=== PATIENT | female | born 1930 | race Caucasian/White ===

== ENCOUNTER → 2017-01-29 | Outpatient (REF) | payer MEDICARE | LOC: M SFHCPLAZ 09:18 | PROVIDERS: ATTEND Physician Assistant | DX: E03.9 Hypothyroidism, unspecified (principal); E55.9 Vitamin D deficiency, unspecified | CPT/HCPCS: 36415; 82306; 84443; G0463 ==

== ENCOUNTER → 2018-05-25 | Outpatient (REF) | payer MEDICARE ==
[2018-05-25 16:16] LABS: VITAMIN B12 LEVEL 908 PG/ML (247-911)
[2018-05-25 16:18] LABS: ANION GAP 8 MEQ/L (8-16); BLOOD UREA NITROGEN 25 MG/DL (7-18); CALCIUM LEVEL 8.5 MG/DL (8.8-10.2); CARBON DIOXIDE LEVEL 26 MEQ/L (21-32); CHLORIDE LEVEL 108 MEQ/L (98-107); CREATININE FOR GFR 1.32 MG/DL (0.55-1.30); GLOMERULAR FILTRATION RATE 40.5 (>32); GLUCOSE, FASTING 89 MG/DL (70-100); POTASSIUM SERUM 4.5 MEQ/L (3.5-5.1); SODIUM LEVEL 142 MEQ/L (136-145)
== END ==
LOC: M SFHCPLAZ 13:18
DX: I11.9 Hypertensive heart disease without heart failure (principal); E03.9 Hypothyroidism, unspecified; E53.8 Deficiency of other specified B group vitamins
CPT/HCPCS: 84443

== ENCOUNTER → 2018-12-30 | Outpatient (REF) | payer MEDICARE ==
[2018-12-30 18:27] LABS: CALCIUM LEVEL 8.6 MG/DL (8.8-10.2); CREATININE FOR GFR 1.35 MG/DL (0.55-1.30); GLOMERULAR FILTRATION RATE 39.4 (>32); POTASSIUM SERUM 4.7 MEQ/L (3.5-5.1)
== END ==
LOC: M SFHCPLAZ 15:16
PROVIDERS: ATTEND Family Medicine
DX: N18.3 Chronic kidney disease, stage 3 (moderate) (principal); I11.9 Hypertensive heart disease without heart failure
CPT/HCPCS: 36415; 80048; G0463

== ENCOUNTER → 2019-06-01 | Outpatient (REF) | payer MEDICARE ==
[2019-06-01 12:17] LABS: CALCIUM LEVEL 9.1 MG/DL (8.8-10.2); CHOLESTEROL RISK RATIO 2.44 (<5); CREATININE FOR GFR 1.29 MG/DL (0.55-1.30); GLOMERULAR FILTRATION RATE 41.5 (>32); POTASSIUM SERUM 4.8 MEQ/L (3.5-5.1); THYROID STIMULATING HORMONE 2.71 uIU/ML (0.358-3.740)
== END ==
LOC: M SFHCPLAZ 10:07
PROVIDERS: ATTEND Family Medicine
DX: E78.2 Mixed hyperlipidemia (principal); I11.0 Hypertensive heart disease with heart failure; N18.3 Chronic kidney disease, stage 3 (moderate); E03.9 Hypothyroidism, unspecified; E53.8 Deficiency of other specified B group vitamins

== ENCOUNTER 2020-09-12 21:11 | Inpatient (IN) | payer MEDICARE ==
[~2020-09-12] VITALS: Ht 162.6 cm; Wt 81.5 kg
[2020-09-12 21:52] LABS: BASO % 0.8 % (0.0-1.0); EOS # 0.3 10^3/uL (0.0-0.5); EOS % 7.8 % (0.0-3.0); LYMPH # 1.2 10^3/uL (1.5-5.0); LYMPH % 32.6 % (24.0-44.0); MEAN CORPUSCULAR HEMOGLOBIN 16.6 pg (27.0-33.0); MEAN CORPUSCULAR HGB CONC 25.8 g/dl (32.0-36.5); MEAN CORPUSCULAR VOLUME 64.2 fl (80.0-96.0); MONO # 0.4 10^3/uL (0.0-0.8); MONO % 11.4 % (0.0-5.0); NEUTROPHILS # 1.7 10^3/uL (1.5-8.5); NEUTROPHILS % 47.4 % (36.0-66.0); PLATELET COUNT, AUTOMATED 213 10^3/uL (150-450); RED BLOOD COUNT 3.74 10^6/uL (4.00-5.40); WHITE BLOOD COUNT 3.6 10^3/uL (4.0-10.0)
[2020-09-12 21:55] LABS: HEMOGLOBIN 6.2 g/dl (12.0-15.5)
[2020-09-12 22:02] LABS: INR 2.62; PROTHROMBIN TIME 28.6 SECONDS (12.5-14.3)
[2020-09-12 22:03] LABS: PARTIAL THROMBOPLASTIN TIME 43.6 SECONDS (24.2-38.5)
[2020-09-12 22:49] LABS: ALBUMIN 3.3 GM/DL (3.2-5.2); BILIRUBIN,TOTAL 0.3 MG/DL (0.2-1.0); CALCIUM LEVEL 8.3 MG/DL (8.8-10.2); CK-MB VALUE MASS 1.3 NG/ML (<3.6); CREATININE FOR GFR 1.22 MG/DL (0.55-1.30); GLOMERULAR FILTRATION RATE 44.2 (>32); MB/CK RELATIVE INDEX 1.69 (< OR =4); POTASSIUM SERUM 4.2 MEQ/L (3.5-5.1); TOTAL PROTEIN 6.1 GM/DL (6.4-8.2); TROPONIN I 0.02 NG/ML (< 0.10)
[2020-09-12] MEDS ORDERED: PRAV20TA2 PO (23:14)
[2020-09-12] MEDS ORDERED: LISI40TA PO (23:14)
[2020-09-12] MEDS ORDERED: LEVO75TA4 PO (23:14)
[2020-09-12] MEDS ORDERED: AMLO2.5T3 PO (23:14)
[2020-09-12] MEDS ORDERED: XARE20TA PO (23:14)
[2020-09-12 23:27] LABS: HEMATOCRIT 24.1 % (36.0-47.0); MEAN CORPUSCULAR HEMOGLOBIN 17.6 pg (27.0-33.0); MEAN CORPUSCULAR HGB CONC 27.4 g/dl (32.0-36.5); MEAN CORPUSCULAR VOLUME 64.1 fl (80.0-96.0); PLATELET COUNT, AUTOMATED 215 10^3/uL (150-450); RED BLOOD COUNT 3.76 10^6/uL (4.00-5.40); WHITE BLOOD COUNT 4.3 10^3/uL (4.0-10.0)
[2020-09-12 23:30] LABS: HEMOGLOBIN 6.6 g/dl (12.0-15.5)
[2020-09-13] VITALS (12 sets, daily range): BP systolic 119–164; BP diastolic 61–81
[2020-09-13] MEDS ORDERED: MAALOX 30 ML SUSP *UDC PO PRN (02:30)
[2020-09-13] MEDS ORDERED: MOM 30ML SUSPENSION UDC PO PRN (02:30)
[2020-09-13] MEDS ORDERED: ACETAMINOPHEN TAB 650MG DOSE (2X325MG) PO PRN (02:30)
--- NOTE | 2020-09-13 05:58 | HPEPDOC ---
[facility] Medical History & Physical Date of Admission Sep 13, 2020 Date of Service: Sep 13, 2020 Primary Care Physician: LEA VARELA MD Attending Physician: MARIA TERESA SEQUEIRA MD History and Physical TIME OF SERVICE: 304 AM CHIEF COMPLAINT: Bleeding HISTORY OF PRESENT ILLNESS: This history is limited by the patient's impaired memory. She denied having any medical problems but admitted to taking various medications but could not tell me why she took them. This 89-year-old female came to the hospital via EMS because of complaints, but she couldn't stop bleeding from her left lower leg. Per Mika Suárez by the time the patient arrived in the ER, she only had a pinpoint opening at the outer aspect of the left leg and was no longer bleeding, but her blood work revealed a hemoglobin of 6.2. He felt that this may be due to bleeding varicose veins. The patient that the bleeding may have started around 3 or 4 PM, but was unable to quantify how much she bled. She denied having any blood in her stools or dark sticky stools, denied vomiting, and denied being told that she looks pale. She also denied having chest pain or shortness of breath. REVIEW OF SYSTEMS: 12 point review of systems negative except as listed in HPI PAST MEDICAL/ SURGICAL HISTORY: Per chart review Paroxysmal atrial fibrillation Chronic hypertension Dyslipidemia Hypothyroidism Chronic constipation Vitamin B12 deficiency CKD 3 HFpEF (Grade1) Class 1 obesity Wrist surgery SOCIAL HISTORY: She doesn't smoke She lives in a senior citizens home FAMILY HISTORY: Per chart review Brain and lung cancer, CAD, HTN ALLERGIES: Please see below. HOME MEDICATIONS: Please see below. PHYSICAL EXAMINATION: Vital Signs Date Time Temp Pulse Resp B/P (MAP) Pulse Ox O2 Delivery O2 Flow Rate FiO2 09/12/20 21:24 97.0 92 16 139/84 (102) 99 Room Air GEN: well-nourished / well developed/ NAD INTEGUMENT: not flushed/ not jaundice / has generalize pallor / aspect of the left lower leg is slightly, but there is no blood or abrasion or visible cut HEENT: lips acyanotic /mucus membranes moist and pink CVS: RRR/NMRG/ radial pulses intact / no lower extremity edema LUNGS: able to speak full sentences without stopping to take a breath / no coughing / lungs are clear to auscultation bilaterally on room air ABDOMEN: Contour (flat) / soft & not tender with palpation MSK/EXTREMITIES: NCAT / range of motion intact in all 4 extremities NEURO: CN 2-12 are grossly intact / speech is not dysarthric PSYCH: alert and oriented to person place and time/ able to understand and follow all commands LABORATORY DATA: 09/13/20 06:12 09/12/20 21:23: Immature Granulocyte % (Auto) 0.0, Neutrophils (%) (Auto) 47.4, Lymphocytes (%) (Auto) 32.6, Monocytes (%) (Auto) 11.4H, Eosinophils (%) (Auto) 7.8H, Basophils (%) (Auto) 0.8, Neutrophils # (Auto) 1.7, Lymphocytes # (Auto) 1.2L, Monocytes # (Auto) 0.4, Eosinophils # (Auto) 0.3, Basophils # (Auto) 0.0, Nucleated Red Blood Cells % (auto) 0.0, Prothrombin Time 28.6H, Prothromb Time International Ratio 2.62, Activated Partial Thromboplast Time 43.6H 09/12/20 22:13: Anion Gap 7L, Glomerular Filtration Rate 44.2, Calcium Level 8.3L, Total Bilirubin 0.3, Aspartate Amino Transf (AST/SGOT) 18, Alanine Aminotransferase (ALT/SGPT) 13, Alkaline Phosphatase 51, Total Creatine Kinase 77, Creatine Kinase MB 1.3, Creatine Kinase MB Relative Index 1.69, Troponin I 0.02, Total Protein 6.1L, Albumin 3.3, Albumin/Globulin Ratio 1.2 09/12/20 23:21: Nucleated Red Blood Cells % (auto) 0.0 09/13/20 01:34: Coronavirus (COVID-19)(PCR) NEGATIVE ASSESSMENT: is an 89-year-old with a history of HTN, A. fib, DLP, hypothyroidism, B12 deficiency, HFpEF, CKD 3, class I obesity who presented w c/o bleeding from her lower extremity and was found to have hemoglobin of 6.2; she will be admitted for management and evaluation of acute blood loss anemia. PLAN: 1. Acute Anemia Presuming this is blood loss anemia. Per Mika Suárez source is varicose veins, b ut suspect that she may also have another source of blood loss. Plan: admit to medical floor/ c/w 2 units of PRBCs / f/u repeat serial H/H, reticulocyte #, iron panel w ferritin, , B12, RBC folate, thiamine, stool occult / stool occult 2. Paroxysmal atrial fibrillation Plan: will likely hold xarelto once her meds have been reconciled (per d/w gear technician Chris they will call the patient's daughter in the AM to confirm her meds) 3. Chronic hypertension / Chronic HFpEF (Grade1) Plan: will likely resume amlodipine and lisinopril once her meds are reconciled 4. Dyslipidemia Plan: will likely resume pravastatin once her medications have been reconciled 5. Hypothyroidism Plan: will likely resume lisinopril once her medications have been reconciled 6. CKD 3 stable 7. Class 1 obesity BMI of 32.2, complicates care DVT PROPHYLAXIS: TEDs & sequentials DISPOSITION: home after more than 2 midnight's stay Home Medications Scheduled Amlodipine Besylate (Amlodipine Besylate) 2.5 Mg Tablet, 2.5 MG PO DAILY Levothyroxine Sodium (Levothyroxine Sodium) 75 Mcg Tablet, 75 MCG PO DAILY Lisinopril (Lisinopril) 40 Mg Tablet, 40 MG PO QHS Pravastatin Sodium (Pravastatin Sodium) 20 Mg Tablet, 20 MG PO QHS Rivaroxaban (Xarelto) 20 Mg Tablet, 20 MG PO QHS Allergies Coded Allergies: No Known Allergies (Unverified , 09/13/20) A-FIB/CHADSVASC A-FIB History Current/History of A-Fib/PAF?: No Current PO Anticoag Therapy: No MARIA TERESA SEQUEIRA MD Sep 13, 2020 05:58
[2020-09-13 06:24] LABS: PERCENT SATURATION 4.1 % (13.2-45.0)
[2020-09-13 06:35] LABS: HEMATOCRIT 29.3 % (36.0-47.0); MEAN CORPUSCULAR HEMOGLOBIN 18.2 pg (27.0-33.0); MEAN CORPUSCULAR HGB CONC 27.3 g/dl (32.0-36.5); MEAN CORPUSCULAR VOLUME 66.6 fl (80.0-96.0); PLATELET COUNT, AUTOMATED 238 10^3/uL (150-450); WHITE BLOOD COUNT 5.6 10^3/uL (4.0-10.0)
[2020-09-13 06:50] LABS: CALCIUM LEVEL 8.4 MG/DL (8.8-10.2); CREATININE FOR GFR 1.12 MG/DL (0.55-1.30); GLOMERULAR FILTRATION RATE 48.8 (>32); POTASSIUM SERUM 3.9 MEQ/L (3.5-5.1)
[2020-09-13] MEDS: LEVOTHYROXINE 75MCG TABLET (0.075MG) PO SCH (08:45)
[2020-09-13 09:41] LABS: FOLATE 18.9 NG/ML (>5.4)
--- NOTE | 2020-09-13 19:27 | ECGEPIP ---
[facility] Test Date: 2020-09-12 Pat Name: MEDHAT ERNST Department: Room: [place] [address] Gender: Female Diet Kitchen Cook: lesa : 1930 Requested By: SARAH RICARDO Order Number: [id number] Reading MD: Julien Wong Measurements Intervals Nash Rate: 88 P: 72 HI: 188 QRS: -11 QRSD: 87 T: -7 QT: 367 QTc: 445 Interpretive Statements SINUS RHYTHM WITH OCCASIONAL VENTRICULAR PREMATURE COMPLEXES NONSPECIFIC ST & T-WAVE ABNORMALITY NO PRIOR Electronically Signed on 09-13-2020 19:27:50 EST by Julien Wong
--- NOTE | 2020-09-13 19:50 | IPNPDOC ---
Text Note Date of Service The patient was seen on 09/13/20. NOTE Severely iron deficient. Would like to give her IV iron but need to clarify GOC with the daughter as old SIAIAS mentioned a SPANISH LINGUIST status and no antibiotics etc. For now Hgb appropriately responded to 8s. Will discuss this matter with the daughter tomorrow morning so that I offer care that is consistent with her wishes. VS,Hugoe, I+O VS, Hugoe, I+O Laboratory Tests 09/12/20 21:23 09/12/20 22:13 09/12/20 23:21 09/13/20 06:12 Vital Signs Date Time Temp Pulse Resp B/P (MAP) Pulse Ox O2 Delivery O2 Flow Rate FiO2 09/13/20 18:00 98.0 79 18 126/62 (83) 98 Room Air I&O- Last 24 Hours up to 6 AM 09/13/20 06:00 Intake Total 800 ml Balance 800 ml RHONA CANTRELL MD Sep 13, 2020 19:50
[2020-09-13] MEDS: lisinopriL 40 MG TAB PO SCH (20:25)
[2020-09-13] MEDS: PRAVASTATIN 20 MG TAB PO SCH (20:25)
[2020-09-14] VITALS (7 sets, daily range): BP systolic 130–142; BP diastolic 62–93
[2020-09-14] MEDS: LEVOTHYROXINE 75MCG TABLET (0.075MG) PO SCH (05:33)
[2020-09-14 06:45] LABS: HEMATOCRIT 33.3 % (36.0-47.0); HEMOGLOBIN 9.1 g/dl (12.0-15.5); MEAN CORPUSCULAR HEMOGLOBIN 18.5 pg (27.0-33.0); MEAN CORPUSCULAR HGB CONC 27.3 g/dl (32.0-36.5); MEAN CORPUSCULAR VOLUME 67.5 fl (80.0-96.0); PLATELET COUNT, AUTOMATED 268 10^3/uL (150-450); RED BLOOD COUNT 4.93 10^6/uL (4.00-5.40); WHITE BLOOD COUNT 3.8 10^3/uL (4.0-10.0)
[2020-09-14 06:53] LABS: CALCIUM LEVEL 8.8 MG/DL (8.8-10.2); CREATININE FOR GFR 1.14 MG/DL (0.55-1.30); GLOMERULAR FILTRATION RATE 47.8 (>32); POTASSIUM SERUM 4.1 MEQ/L (3.5-5.1)
[2020-09-14 06:54] LABS: INR 1.18; PROTHROMBIN TIME 15.3 SECONDS (12.5-14.3)
[2020-09-14] MEDS ORDERED: IRON SUCROSE 100MG 5ML VIAL (J1756 PER 1MG) IV SCH (09:15)
--- NOTE | 2020-09-14 11:48 | IPNPDOC ---
Text Note Date of Service The patient was seen on 09/14/20. NOTE SUBJECTIVE: -No acute complaints -Updated daughter, agrees with giving IV iron to boost iron stores and improve symptomatic anemia -Plan will be for likely dc home tomorrow with family PHYSICAL EXAMINATION: VITAL SIGNS: Please see below. GEN: well-nourished / well developed/ NAD INTEGUMENT: not flushed/ not jaundice / has generalize palor / aspect of the left lower leg is slightly, but there is no blood or abrasion or visible cut HEENT: lips acyanotic /mucus membranes moist and pink CVS: RRR/NMRG/ radial pulses intact / no lower extremity edema LUNGS: able to speak full sentences without stopping to take a breath / no coughing / lungs are clear to auscultation bilaterally on room air ABDOMEN: Contour (flat) / soft & not tender with palpation MSK/EXTREMITIES: NCAT / range of motion intact in all 4 extremities NEURO: CN 2-12 are grossly intact / speech is not dysarthric PSYCH: alert and oriented to person place and time/ able to understand and follow all commands LABORATORY DATA: Hgb 9.1 ferritin 11 iron 15 TIBC 369 WBC 3.8 platelets 268 ASSESSMENT: is an 89-year-old with a history of HTN, A. fib, DLP, hypothyroidism, B12 deficiency, HFpEF, CKD 3, class I obesity who presented w c/o bleeding from her lower extremity and was found to have hemoglobin of 6.2 s/p pRBCs and found to have profound iron deficiency. PLAN: 1. 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 2. Paroxysmal atrial fibrillation -hold xarelto, until she sees PCP to discuss risk vs. benefit for shared decision making especially given her GOC. 3. Chronic hypertension / Chronic HFpEF (Grade1) -amlodipine and lisinopril 4. Dyslipidemia -pravastatin 5. Hypothyroidism -continue home meds 6. CKD 3 stable 7. Class 1 obesity BMI of 32.2, complicates care DVT PROPHYLAXIS: TEDs & sequentials DISPOSITION: PT/OT, likely home tomorrow VS,Fishbone, I+O VS, Franci, I+O Laboratory Tests 09/14/20 05:55 Vital Signs Date Time Temp Pulse Resp B/P (MAP) Pulse Ox O2 Delivery O2 Flow Rate FiO2 09/14/20 06:00 98.7 79 20 136/76 (96) 96 Room Air I&O- Last 24 Hours up to 6 AM 09/14/20 06:00 Intake Total 1840 ml Output Total 600 ml Balance 1240 ml RHONA CANTRELL MD Sep 14, 2020 09:01
[2020-09-14] MEDS: IRON SUCROSE 100 MG in NS 100 ML OVER 1 HR IV SCH (12:38)
[2020-09-14] MEDS: PRAVASTATIN 20 MG TAB PO SCH (20:05)
[2020-09-14] MEDS: lisinopriL 40 MG TAB PO SCH (20:05)
[2020-09-15] MEDS: LEVOTHYROXINE 75MCG TABLET (0.075MG) PO SCH (05:39)
[2020-09-15 06:00] VITALS: BP 143/66
[2020-09-15 06:51] LABS: INR 1.12; PROTHROMBIN TIME 14.6 SECONDS (12.5-14.3)
[2020-09-15 09:17] VITALS: BP 163/89
--- NOTE | 2020-09-15 09:29 | DS.PDOC ---
Discharge Summary General Date of Admission Sep 13, 2020 at 02:25 Date of Discharge 09/15/2020 Attending Physician: RHONA CANTRELL MD Discharge Summary PROCEDURES PERFORMED DURING STAY: None ADMITTING DIAGNOSES: 1. Anemia DISCHARGE DIAGNOSES: Severe iron deficiency anemia Bleeding LE varicose vein Dementia Paroxysmal atrial fibrillation on coumadin Chronic hypertension Dyslipidemia Hypothyroidism Chronic constipation Vitamin B12 deficiency chronic CKD 3 chronic HFpEF COMPLICATIONS/CHIEF COMPLAINT: Acute Blood Loss Anemia. HISTORY OF PRESENT ILLNESS: 89-year-old W who came to the hospital via EMS because she couldn't stop bleedin g from her left lower leg when one of her varicose veins started bleeding in the setting of coumadin for pAFib. Per ED provider by the time the patient arrived in the ER, she only had a pinpoint opening at the outer aspect of the left leg and was no longer bleeding, but her blood work revealed a hemoglobin of 6.2. The patient that the bleeding may have started around 3 or 4 PM, but was unable to quantify how much she bled. She denied having any blood in her stools or dark sticky stools, denied vomiting, and denied being told that she looks pale. She also denied having chest pain or shortness of breath. HOSPITAL COURSE: She was admitted for anemia and given 2u pRBCs with appropriate sustained response in her Hgb and Hct. Heme studies revealed profound MANDO with a ferritin of 11 and iron level of 15. I gave her two doses of Venofer 100mg IV to boost her stores and she is now being discharged home on Fe sulfate and will follow up with her PCP. DISCHARGE MEDICATIONS: Please see below. ALLERGIES: Please see below. PHYSICAL EXAMINATION ON DISCHARGE: VITAL SIGNS: Please see below. GEN: well-nourished / well developed/ NAD INTEGUMENT: not flushed/ not jaundice / has generalize palor / aspect of the left lower leg is slightly, but there is no blood or abrasion or visible cut HEENT: lips acyanotic /mucus membranes moist and pink CVS: RRR/NMRG/ radial pulses intact / no lower extremity edema LUNGS: able to speak full sentences without stopping to take a breath / no coughing / lungs are clear to auscultation bilaterally on room air ABDOMEN: Contour (flat) / soft & not tender with palpation MSK/EXTREMITIES: NCAT / range of motion intact in all 4 extremities NEURO: CN 2-12 are grossly intact / speech is not dysarthric PSYCH: alert and oriented to person place and time/ able to understand and follow all commands LABORATORY DATA: Please see below. IMAGING: None PROGNOSIS: Good ACTIVITY: As tolerated DIET: regular DISCHARGE PLAN: Home with PCP follow up DISPOSITION: Home DISCHARGE INSTRUCTIONS: 1. Home with PCP follow up ITEMS TO FOLLOWUP ON ON OUTPATIENT: 1. MANDO DISCHARGE CONDITION: Stable TIME SPENT ON DISCHARGE: 41 minutes. Vital Signs/I&Os Vital Signs Date Time Temp Pulse Resp B/P (MAP) Pulse Ox O2 Delivery O2 Flow Rate FiO2 09/15/20 09:17 92 163/89 09/15/20 06:00 98.6 18 99 Room Air I&O- Last 24 Hours up to 6 AM 09/15/20 06:00 Intake Total 1470 ml Output Total 0 ml Balance 1470 ml Laboratory Data Labs 24H Laboratory Tests 2 09/15/20 06:25: Prothrombin Time 14.6H, Prothromb Time International Ratio 1.12 Discharge Medications Scheduled Amlodipine Besylate (Amlodipine Besylate) 2.5 Mg Tablet, 2.5 MG PO DAILY, (Reported) Levothyroxine Sodium (Levothyroxine Sodium) 75 Mcg Tablet, 75 MCG PO DAILY, (Reported) Lisinopril (Lisinopril) 40 Mg Tablet, 40 MG PO QHS, (Reported) Pravastatin Sodium (Pravastatin Sodium) 20 Mg Tablet, 20 MG PO QHS, (Reported) Rivaroxaban (Xarelto) 20 Mg Tablet, 20 MG PO QHS, (Reported) Allergies Coded Allergies: No Known Allergies (Unverified , 09/13/20) RHONA CANTRELL MD Sep 15, 2020 09:29
[2020-09-15] MEDS ORDERED: IRON65TA2 PO (09:48)
[2020-09-15 10:00] VITALS: BP 121/59
[2020-09-15] MEDS: IRON SUCROSE 100 MG in NS 100 ML OVER 1 HR IV SCH (10:32)
[2020-09-15 10:34] VITALS: BP 148/83
[2020-09-15 12:29] VITALS: BP 146/74
== END 2020-09-15 12:33 | disposition home or self-care (01) | DRG 813 ==
LOC: M ED 21:11 → M ED INP 09-13 02:25 → ENRESERV 09-13 03:35 → M MSPAV 09-13 06:05
PROVIDERS: ADMIT Internal Medicine; ATTEND Internal Medicine
PROC: 30233N1 Transfusion of Nonautologous Red Blood Cells into Peripheral Vein, Percutaneous Approach (ICD-10-PCS; principal; 2020-09-12)
DX: D68.32 Hemorrhagic disorder due to extrinsic circulating anticoagulants (principal); I50.32 Chronic diastolic (congestive) heart failure; I13.0 Hypertensive heart and chronic kidney disease with heart failure and stage 1 through stage 4 chronic kidney disease, or unspecified chronic kidney disease; D62 Acute posthemorrhagic anemia; I48.0 Paroxysmal atrial fibrillation; E78.5 Hyperlipidemia, unspecified; E03.9 Hypothyroidism, unspecified; N18.30 Chronic kidney disease, stage 3 unspecified; I83.892 Varicose veins of left lower extremity with other complications; E66.9 Obesity, unspecified; Z68.32 Body mass index [BMI] 32.0-32.9, adult; K59.09 Other constipation; E53.8 Deficiency of other specified B group vitamins; Z79.01 Long term (current) use of anticoagulants; Z79.899 Other long term (current) drug therapy; Z20.828 Contact with and (suspected) exposure to other viral communicable diseases

== ENCOUNTER → 2020-09-29 | Outpatient (REF) | payer MEDICARE ==
[~2020-09-29] MED LIST: AMLO2.5T3 PO; IRON65TA2 PO; LEVO75TA4 PO; LISI40TA PO; PRAV20TA2 PO; XARE20TA PO
[2020-09-29 15:47] LABS: BASO % 0.8 % (0.0-1.0); EOS # 0.2 10^3/uL (0.0-0.5); EOS % 5.4 % (0.0-3.0); HEMATOCRIT 36.5 % (36.0-47.0); HEMOGLOBIN 10.2 g/dl (12.0-15.5); LYMPH # 1.2 10^3/uL (1.5-5.0); LYMPH % 33.4 % (24.0-44.0); MEAN CORPUSCULAR HEMOGLOBIN 20.5 pg (27.0-33.0); MEAN CORPUSCULAR HGB CONC 27.9 g/dl (32.0-36.5); MEAN CORPUSCULAR VOLUME 73.3 fl (80.0-96.0); MONO # 0.3 10^3/uL (0.0-0.8); MONO % 8.4 % (0.0-5.0); NEUTROPHILS # 1.9 10^3/uL (1.5-8.5); NEUTROPHILS % 51.7 % (36.0-66.0); PLATELET COUNT, AUTOMATED 188 10^3/uL (150-450); RED BLOOD COUNT 4.98 10^6/uL (4.00-5.40); WHITE BLOOD COUNT 3.7 10^3/uL (4.0-10.0)
[2020-09-29 16:22] LABS: ALBUMIN 3.7 GM/DL (3.2-5.2); BILIRUBIN,TOTAL 0.4 MG/DL (0.2-1.0); CALCIUM LEVEL 9.2 MG/DL (8.8-10.2); CREATININE FOR GFR 1.35 MG/DL (0.55-1.30); FREE T4 1.15 NG/DL (0.76-1.46); GLOMERULAR FILTRATION RATE 39.3 (>32); POTASSIUM SERUM 4.2 MEQ/L (3.5-5.1); THYROID STIMULATING HORMONE 3.11 uIU/ML (0.358-3.740); TOTAL PROTEIN 6.6 GM/DL (6.4-8.2)
[2020-09-29 17:28] LABS: MICROCYTOSIS 2+
[2020-09-29 17:29] LABS: ANISOCYTOSIS 2+
[2020-09-29 17:33] LABS: OVALOCYTES 1+; SPHEROCYTES 1+
[2020-09-29 20:01] LABS: PLATELET ESTIMATE NORMAL (NORMAL)
== END ==
LOC: M PLALAB 14:37
PROVIDERS: ATTEND Physician Assistant Medical
DX: I50.32 Chronic diastolic (congestive) heart failure (principal); D50.9 Iron deficiency anemia, unspecified; N18.30 Chronic kidney disease, stage 3 unspecified; E03.9 Hypothyroidism, unspecified